=== PATIENT | female | born 1980 | race Caucasian/White ===

== ENCOUNTER 2018-05-12 10:22 | Emergency (ER) | payer BC ==
[2018-05-12] MEDS ORDERED: ALBUTEROL 2.5 MG/3 ML NEB SOL ONE (11:07)
[2018-05-12] MEDS ORDERED: IPRATROPIUM BROM 0.5MG/2.5ML ONE (11:07)
[2018-05-12] MEDS ORDERED: predniSONE 20 MG TAB ONE (11:08)
--- NOTE | 2018-05-12 11:24 | RAD REPORT ---
EXAM DESCRIPTION: RAD - Chest Pa And Lat (2 Views) - 05/12/2018 11:14 am CLINICAL HISTORY: COUGH Chest pain. COMPARISON: Chest Pa And Lat (2 Views) dated 07/18/2015 FINDINGS: The lungs are clear. The heart is normal in size. No displaced fractures. IMPRESSION: No acute or concerning finding suspected.
[2018-05-12 11:32] LABS: Urine Amorphous Sediment 3+ /HPF (NONE SEEN); Urine Bacteria <20 /HPF (<20); Urine Culture Reflex Order NOT NEEDED; Urine RBC <5 /HPF (NONE SEEN)
--- NOTE | 2018-05-12 11:54 | ER ---
Nurse's Notes [facility] Name: Kelly Cavanaugh Age: 37 yrs Sex: Female : 1980 Arrival Date: 05/12/2018 Time: 10:25 Bed 19 Private MD: Diagnosis: Mild intermittent asthma with (acute) exacerbation Presentation: 05/12 10:29 Presenting complaint: Chest tightness and SOB unrelieved by albuterol inhaler x 2 days. hb Transition of care: patient was not received from another setting of care. Onset of symptoms was May 12, 2018. Risk Assessment: Do you want to hurt yourself or someone else? Patient reports no desire to harm self or others. Initial Sepsis Screen: Does the patient meet any 2 criteria? No. Patient's initial sepsis screen is negative. Does the patient have a suspected source of infection? No. Patient's initial sepsis screen is negative. Care prior to arrival: None. 10:29 Method Of Arrival: Ambulatory hb 10:29 Acuity: KYLER 3 hb Historical: - Allergies: 10:32 No Known Allergies; hb - Home Meds: 10:32 Albuterol Inhl [Active]; Klonopin Oral [Active]; hb - PMHx: 10:32 Asthma; hb - PSHx: 10:32 None; hb - Immunization history:: Adult Immunizations up to date. - Social history:: Smoking status: Patient/guardian denies using tobacco. - Ebola Screening: : No symptoms or risks identified at this time. Screenin:14 Abuse screen: Denies threats or abuse. Denies injuries from another. Nutritional ph screening: No deficits noted. Tuberculosis screening: No symptoms or risk factors identified. Fall Risk None identified. Assessment: 11:12 General: Appears in no apparent distress. uncomfortable, obese, well groomed, Behavior ph is calm, cooperative, appropriate for age, Denies fever. Pain: Complains of pain in chest Quality of pain is described as "tight and sore". Neuro: Level of Consciousness is awake, alert, obeys commands, Oriented to person, place, time, situation. Cardiovascular: Reports chest pain, fatigue, shortness of breath, Denies nausea, palpitations, syncope, vomiting, Capillary refill < 3 seconds in bilateral fingers Patient's skin is warm and dry. Respiratory: Reports shortness of breath at rest cough that is productive, pain with cough pain with respiration Airway is patent Respiratory effort is even, unlabored, Respiratory pattern is regular, symmetrical, Breath sounds are coarse in mediastinum Breath sounds with wheezes. GI: No signs and/or symptoms were reported involving the gastrointestinal system. Derm: Skin is intact, is healthy with good turgor, Skin is pink, warm \\T\\ dry. 12:03 Reassessment: Patient appears in no apparent distress at this time. Patient and/or ph family updated on plan of care and expected duration. Pain level reassessed. Patient is alert, oriented x 3, equal unlabored respirations, skin warm/dry/pink. Patient states feeling better. Patient states symptoms have improved. Vital Signs: 10:31 BP 124 / 105; Pulse 80; Resp 18; Temp 97.4; Pulse Ox 98% on R/A; Pain 2/10; hb 11:19 BP 137 / 89; Pulse 76; Resp 18; Pulse Ox 98% on R/A; ph 12:03 BP 124 / 78; Pulse 87; Resp 18; Temp 98.1; Pulse Ox 99% on R/A; ph ED Course: 10:25 Patient arrived in ED. mr 10:30 Triage completed. hb 10:30 Arm band placed on. hb 10:32 Jimbo Padilla MD is Attending Physician. gs 10:43 Mary Diaz, PAVITHRA is Primary Nurse. ph 11:10 Patient moved to radiology via wheelchair. jb2 11:13 X-ray completed. Patient tolerated procedure well. jb2 11:13 Urine collected: clean catch specimen, cloudy. mh5 11:13 Urine Microscopic Only Sent. mh5 11:14 Patient has correct armband on for positive identification. Bed in low position. Call ph light in reach. Side rails up X 1. Pulse ox on. NIBP on. Warm blanket given. 11:15 XRAY Chest Pa And Lat (2 Views) In Process Unspecified. EDMS 11:15 Urine --Ancillary (enter results) Sent. mh5 11:15 Urine Dipstick--Ancillary (enter results) Sent. 5 11:15 No provider procedures requiring assistance completed. ph 11:16 Patient moved back from radiology. jb2 12:04 Patient did not have IV access during this emergency room visit. ph Administered Medications: 11:08 Drug: predniSONE 40 mg Route: PO; ph 12:05 Follow up: Response: No adverse reaction; Marked relief of symptoms ph 11:09 Drug: Albuterol 2.5 mg Route: Inhalation; ph 12:05 Follow up: Response: No adverse reaction; Marked relief of symptoms ph 11:09 Drug: AtroVENT Aerosol 0.5 mg Route: Inhalation; ph 12:06 Follow up: Response: No adverse reaction; Marked relief of symptoms ph Outcome: 11:53 Discharge ordered by . rocío 12:04 Discharged to home ambulatory. ph 12:04 Condition: improved 12:04 Discharge instructions given to patient, Instructed on discharge instructions, follow up and referral plans. medication usage, Demonstrated understanding of instructions, follow-up care, medications, Prescriptions given X 3. 12:06 Patient left the ED. ph Signatures: Dispatcher [employer] Shannan Carcamo KayeJohnathon2 Mary Diaz RN RN ph Baxter, Heather, RN RN Belle Srinivasan [facility] Jimbo Padilla MD MD
--- NOTE | 2018-05-12 11:54 | EDPHYS ---
Physician Documentation [facility] Name: Kelly Cavanaugh Age: 37 yrs Sex: Female : 1980 Arrival Date: 05/12/2018 Time: 10:25 Bed 19 Private MD: ED Physician Jimbo Padilla HPI: 05/12 11:50 This 37 yrs old Female presents to ER via Ambulatory with complaints of gs Asthma Exacerbation. 11:50 The patient presents to the emergency department with wheezing, Current therapy: gs albuterol inhaler. Onset: The symptoms/episode began/occurred 2 week(s) ago, and became persistent. Modifying factors: The symptoms are alleviated by nothing, the symptoms are aggravated by nothing. Associated signs and symptoms: Pertinent negatives: fever, palpitations. Severity of symptoms: At their worst the symptoms were moderate in the emergency department the symptoms are unchanged. The patient has experienced similar episodes in the past, several times. The patient has not recently seen a physician. Historical: - Allergies: 10:32 No Known Allergies; hb - Home Meds: 10:32 Albuterol Inhl [Active]; Klonopin Oral [Active]; hb - PMHx: 10:32 Asthma; hb - PSHx: 10:32 None; hb - Immunization history:: Adult Immunizations up to date. - Social history:: Smoking status: Patient/guardian denies using tobacco. - Ebola Screening: : No symptoms or risks identified at this time. ROS: 11:50 All other systems are negative. gs Exam: 11:50 Head/Face: Normocephalic, atraumatic. Eyes: Pupils equal round and reactive to light, gs extra-ocular motions intact. Lids and lashes normal. Conjunctiva and sclera are non-icteric and not injected. Cornea within normal limits. Periorbital areas with no swelling, redness, or edema. ENT: Nares patent. No nasal discharge, no septal abnormalities noted. Tympanic membranes are normal and external auditory canals are clear. Oropharynx with no redness, swelling, or masses, exudates, or evidence of obstruction, uvula midline. Mucous membranes moist. Neck: Trachea midline, no thyromegaly or masses palpated, and no cervical lymphadenopathy. Supple, full range of motion without nuchal rigidity, or vertebral point tenderness. No Meningismus. Chest/axilla: Normal chest wall appearance and motion. Nontender with no deformity. No lesions are appreciated. Cardiovascular: Regular rate and rhythm with a normal S1 and S2. No gallops, murmurs, or rubs. Normal PMI, no JVD. No pulse deficits. Abdomen/GI: Soft, non-tender, with normal bowel sounds. No distension or tympany. No guarding or rebound. No evidence of tenderness throughout. Back: No spinal tenderness. No costovertebral tenderness. Full range of motion. Skin: Warm, dry with normal turgor. Normal color with no rashes, no lesions, and no evidence of cellulitis. MS/ Extremity: Pulses equal, no cyanosis. Neurovascular intact. Full, normal range of motion. Neuro: Awake and alert, GCS 15, oriented to person, place, time, and situation. Cranial nerves II-XII grossly intact. Motor strength 5/5 in all extremities. Sensory grossly intact. Cerebellar exam normal. Normal gait. 11:50 Constitutional: The patient appears in no acute distress, alert, awake. 11:50 Respiratory: the patient does not display signs of respiratory distress, Respirations: normal, no use of accessory muscles, no retractions, no splinting, Breath sounds: wheezing: expiratory that is mild, is scattered. Vital Signs: 10:31 BP 124 / 105; Pulse 80; Resp 18; Temp 97.4; Pulse Ox 98% on R/A; Pain 2/10; hb 11:19 BP 137 / 89; Pulse 76; Resp 18; Pulse Ox 98% on R/A; ph 12:03 BP 124 / 78; Pulse 87; Resp 18; Temp 98.1; Pulse Ox 99% on R/A; ph MDM: 10:44 Patient medically screened. 11:50 Differential diagnosis: acute asthma, exercise-induced asthma, URI. Data reviewed: vital signs, nurses notes. Counseling: I had a detailed discussion with the patient and/or guardian regarding: the historical points, exam findings, and any diagnostic results supporting the discharge/admit diagnosis, radiology results, the need for outpatient follow up. Response to treatment: the patient's symptoms have markedly improved after treatment, and as a result, I will discharge patient. 05/12 10:47 Order name: Urine Microscopic Only; Complete Time: 11:45 05/12 11:14 Order name: Urine Dipstick--Ancillary (enter results) 05/12 10:47 Order name: XRAY Chest Pa And Lat (2 Views); Complete Time: 11:45 05/12 11:14 Order name: Urine --Ancillary (enter results) 05/12 10:47 Order name: Urine Test (obtain specimen); Complete Time: 11:12 05/12 10:47 Order name: Urine Dipstick-Ancillary (obtain specimen); Complete Time: 11:12 Administered Medications: 11:08 Drug: predniSONE 40 mg Route: PO; ph 12:05 Follow up: Response: No adverse reaction; Marked relief of symptoms ph 11:09 Drug: Albuterol 2.5 mg Route: Inhalation; ph 12:05 Follow up: Response: No adverse reaction; Marked relief of symptoms ph 11:09 Drug: AtroVENT Aerosol 0.5 mg Route: Inhalation; ph 12:06 Follow up: Response: No adverse reaction; Marked relief of symptoms ph Disposition: 05/12/18 11:53 Discharged to Home. Impression: Mild intermittent asthma with (acute) exacerbation. - Condition is Stable. - Discharge Instructions: Asthma, Acute Bronchospasm. - Prescriptions for Prednisone 20 mg Oral Tablet - take 1 tablet by ORAL route once daily for 5 days; 5 tablet. Albuterol Sulfate 2.5 mg /3 mL (0.083 %) Inhalation Solution for Nebulization - inhale 1 unit by NEBULIZATION route every 4-6 hours As needed use either nebulizer or mdi; 1 box. - Medication Reconciliation Form, Thank You Letter, Antibiotic Education, Prescription Opioid Use form. - Follow up: Private Physician; When: 2 - 3 days; Reason: Re-evaluation by your physician. Signatures: Dispatcher [employer] Mary Rivera RN RN ph Claudia Yu RN RN Jimbo Padilla MD MD gs Corrections: (The following items were deleted from the chart) 12:06 11:53 05/12/2018 11:53 Discharged to Home. Impression: Mild intermittent asthma with ph (acute) exacerbation. Condition is Stable. Forms are Medication Reconciliation Form, Thank You Letter, Antibiotic Education, Prescription Opioid Use. Follow up: Private Physician; When: 2 - 3 days; Reason: Re-evaluation by your physician.
[2018-05-12 14:13] LABS: Urine Blood NEGATIVE (NEG); Urine Glucose NEGATIVE (NEG); Urine Protein TRACE (NEG); Urine pH 7.5 (5.0-7.0)
== END 2018-05-12 12:06 | disposition home or self-care (01) ==
LOC: ER 10:22
DX: J45.21 Mild intermittent asthma with (acute) exacerbation (principal)
CPT/HCPCS: 71046; 81003; 81015; 81025; 99284; J7512

== ENCOUNTER 2019-02-26 15:12 | Emergency (ER) | payer BC ==
[2019-02-26 18:00] LABS: Absolute Lymphocytes (CBC) 1.3 K/uL (0.7-4.9); Basophils % 1.1 % (0-1.3); Hematocrit 41.8 % (36.0-45.0); Lymphocytes % 19.6 % (15.3-44.8); MPV 8.1 fL (7.6-11.3); RBC Red Blood Cell Count 4.72 M/uL (3.86-4.86)
[2019-02-26 19:05] LABS: Albumin 3.9 g/dL (3.4-5.0); Bilirubin Direct 2.3 mg/dL (0-0.2); Bilirubin Total 3.1 mg/dL (0.2-1.0); Potassium 3.3 mmol/L (3.5-5.1); Protein, Total 7.5 g/dL (6.4-8.2)
[2019-02-26 19:15] LABS: Urine Bacteria >50 /HPF (<20); Urine RBC <5 /HPF (NONE SEEN)
[2019-02-26 19:16] LABS: Urine Culture Reflex Order REFLEXED
--- NOTE | 2019-02-26 19:21 | RAD REPORT ---
EXAM DESCRIPTION: US - Abdomen Exam Limited - 02/26/2019 6:22 pm CLINICAL HISTORY: ABD PAIN COMPARISON: No comparisons FINDINGS: Multiple small mobile gallstones are present including several gallstones that are cluster ed near the neck. Gallbladder wall thickness is upper normal. Pericholecystic fluid is present. No common duct stone or biliary tree dilatation identified. IMPRESSION: Multiple small gallstones are present with minimal pericholecystic fluid and gallbladder wall thickness that is upper normal. These findings can be seen in acute cholecystitis and correlation is needed with clinical presentatio n. No biliary tree abnormality.
[2019-02-26 20:07] LABS: Urine Blood 1+ (NEG); Urine Glucose TRACE (NEG); Urine Protein NEGATIVE (NEG); Urine pH 5.5 (5.0-7.0)
--- NOTE | 2019-02-26 20:26 | ER ---
Nurse's Notes [facility] Name: Kelly Cavanaugh Age: 38 yrs Sex: Female : 1980 Arrival Date: 02/26/2019 Time: 15:14 Bed 14 Private MD: Diagnosis: Abnormal results of liver function studies;Cholecystitis;Cholelithiasis Presentation: 02/26 15:28 Presenting complaint: Patient states: epigastric pain that began last night. Pt reports aa5 vomited once last night, denies vomiting today. Denies diarrhea. Pt reports dark colored urine. Transition of care: patient was not received from another setting of care. Onset of symptoms was January 2019. Risk Assessment: Do you want to hurt yourself or someone else? Patient reports no desire to harm self or others. Initial Sepsis Screen: Does the patient meet any 2 criteria? No. Patient's initial sepsis screen is negative. Does the patient have a suspected source of infection? No. Patient's initial sepsis screen is negative. Care prior to arrival: None. 15:28 Acuity: KYLER 3 aa5 15:28 Method Of Arrival: Ambulatory aa5 Triage Assessment: 17:25 General: Appears in no apparent distress. comfortable, Behavior is cooperative, bp appropriate for age, anxious. Pain: Complains of pain in epigastric area. EENT: No deficits noted. Neuro: No deficits noted. Cardiovascular: No deficits noted. Respiratory: No deficits noted. GI: Reports epigastric pain. : No signs and/or symptoms were reported regarding the genitourinary system. Derm: No deficits noted. Musculoskeletal: No deficits noted. 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 - Social history:: Smoking status: Patient/guardian denies using tobacco. - Ebola Screening: : No symptoms or risks identified at this time. Screenin:26 Abuse screen: Denies threats or abuse. Denies injuries from another. Nutritional bp screening: No deficits noted. Tuberculosis screening: No symptoms or risk factors identified. Fall Risk None identified. Assessment: 17:26 General: SEE TRIAGE NOTE. bp 19:05 Reassessment: Patient and/or family updated on plan of care and expected duration. Pain aj1 level reassessed. Patient states symptoms have improved. General: Appears in no apparent distress. comfortable, Behavior is calm, cooperative, appropriate for age. Neuro: Level of Consciousness is awake, alert, obeys commands, Oriented to person, place, time, situation. Cardiovascular: Patient's skin is warm and dry. Respiratory: Airway is patent Respiratory effort is even, unlabored, Respiratory pattern is regular, symmetrical. GI: Abdomen is flat, non-distended, Bowel sounds present X 4 quads. Abd is soft X 4 quads Abdomen is tender to palpation in epigastric area. : Reports dark urine. EENT: No signs and/or symptoms were reported regarding the EENT system. Derm: No signs and/or symptoms reported regarding the dermatologic system. Skin is pink, warm \T\ dry. normal. Musculoskeletal: No signs and/or symptoms reported regarding the musculoskeletal system. Circulation, motion, and sensation intact. 20:20 Reassessment: Patient appears in no apparent distress at this time. No changes from aj1 previously documented assessment. Patient and/or family updated on plan of care and expected duration. Pain level reassessed. Patient is alert, oriented x 3, equal unlabored respirations, skin warm/dry/pink. 21:12 Reassessment: Patient appears in no apparent distress at this time. No changes from aj1 previously documented assessment. Patient and/or family updated on plan of care and expected duration. Pain level reassessed. Patient is alert, oriented x 3, equal unlabored respirations, skin warm/dry/pink. 22:15 Reassessment: Patient appears in no apparent distress at this time. No changes from aj1 previously documented assessment. Patient and/or family updated on plan of care and expected duration. Pain level reassessed. Patient is alert, oriented x 3, equal unlabored respirations, skin warm/dry/pink. Vital Signs: 15:30 BP 119 / 79; Pulse 74; Resp 16 S; Temp 98.0(TE); Pulse Ox 99% on R/A; Weight 99.79 kg aa5 (R); Height 5 ft. 6 in. (167.64 cm) (R); Pain 7/10; 19:05 BP 139 / 89; Pulse 58; Resp 16; Pulse Ox 100% on R/A; aj1 20:20 BP 135 / 91; Pulse 67; Resp 18; Pulse Ox 100% on R/A; aj1 21:13 BP 122 / 77; Pulse 58; Resp 16; Pulse Ox 98% on R/A; aj1 22:15 BP 132 / 75; Pulse 62; Resp 18; Pulse Ox 97% on R/A; aj1 15:30 Body Mass Index 35.51 (99.79 kg, 167.64 cm) aa5 ED Course: 15:14 Patient arrived in ED. cl3 15:28 Arm band placed on. aa5 15:29 Triage completed. aa5 17:25 Carlitos Chatterjee, PAVITHRA is Primary Nurse. bp 17:25 Tess Venegas, MAIRA is PHCP. kb 17:25 Nasir Herbert MD is Attending Physician. kb 17:26 Patient has correct armband on for positive identification. Bed in low position. Call bp light in reach. Side rails up X2. 17:54 Initial lab(s) drawn, by me, sent to lab. Urine collected: clean catch specimen, jb1 cloudy, brendan colored. Inserted saline lock: 22 gauge in right antecubital area, using aseptic technique. Blood collected. 19:05 No provider procedures requiring assistance completed. aj1 19:09 Notified Nurse Practitioner and/or Physician Anchorman of a critical lab result(s), AST bb 850, ALT 659. Tess Venegas STEAM SHOVELMAN notified. 21:17 Report given to PAVITHRA Cisneros at [facility]. aj1 22:42 Patient transferred, IV remains in place. aj1 Administered Medications: 20:33 Drug: Zosyn 3.375 grams Route: IVPB; Infused Over: 60 mins; Site: right antecubital; aj1 20:34 Drug: NS 0.9% 1000 ml Route: IV; Rate: 1000 ml; Site: right antecubital; aj1 Outcome: 20:25 ER care complete, transfer ordered by . kb 22:42 Transferred by ground EMS to [facility], Transfer form completed. aj1 22:42 Condition: stable 22:42 Discharge instructions given to patient, Instructed on the need for transfer, Demonstrated understanding of instructions. 22:43 Patient left the ED. aj1 Signatures: Segun Rahman jb1 Tess Venegas, CASH CROP FARMER-C CASH CROP FARMER-Tiffany Hatch RN RN aj1 Inez Mojica, RN RN bb Carolyn Ryan, RN RN aa5 Carlitos Chatterjee RN RN bp Dee Dee Davis cl3
--- NOTE | 2019-02-26 20:27 | EDPHYS ---
Physician Documentation [facility] Name: Kelly Cavanaugh Age: 38 yrs Sex: Female : 1980 Arrival Date: 02/26/2019 Time: 15:14 Bed 14 Private MD: ED Physician Nasir Herbert HPI: 02/26 17:56 This 38 yrs old Female presents to ER via Ambulatory with complaints of kb Epigastric Pain. 17:56 The patient presents with abdominal pain in the epigastric area. Onset: The kb symptoms/episode began/occurred last night. The symptoms radiate to back. Associated signs and symptoms: none. The symptoms are described as intermittent. Modifying factors: The symptoms are alleviated by nothing, the symptoms are aggravated by food. Severity of pain: At its worst the pain was moderate in the emergency department the pain has improved mildly. The patient has not experienced similar symptoms in the past. The patient has not recently seen a physician. Pt reports epigastric pain that started at 1900 last night and lasted until 0300. States the pain returned after eating this morning. . 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 - Social history:: Smoking status: Patient/guardian denies using tobacco. - Ebola Screening: : No symptoms or risks identified at this time. ROS: 17:54 Constitutional: Negative for fever, chills, and weight loss, ENT: Negative for injury, kb pain, and discharge, Neck: Negative for injury, pain, and swelling, Cardiovascular: Negative for chest pain, palpitations, and edema, Respiratory: Negative for shortness of breath, cough, wheezing, and pleuritic chest pain, Back: Negative for injury and pain, MS/Extremity: Negative for injury and deformity, Skin: Negative for injury, rash, and discoloration, Neuro: Negative for headache, weakness, numbness, tingling, and seizure. 17:54 Abdomen/GI: Positive for abdominal pain. 17:54 : Positive for dark urine. Exam: 17:54 Constitutional: This is a well developed, well nourished patient who is awake, alert, kb and in no acute distress. Head/Face: Normocephalic, atraumatic. Chest/axilla: Normal chest wall appearance and motion. Nontender with no deformity. No lesions are appreciated. Cardiovascular: Regular rate and rhythm with a normal S1 and S2. No gallops, murmurs, or rubs. Normal PMI, no JVD. No pulse deficits. Respiratory: Lungs have equal breath sounds bilaterally, clear to auscultation and percussion. No rales, rhonchi or wheezes noted. No increased work of breathing, no retractions or nasal flaring. Back: No spinal tenderness. No costovertebral tenderness. Full range of motion. Skin: Warm, dry with normal turgor. Normal color with no rashes, no lesions, and no evidence of cellulitis. MS/ Extremity: Pulses equal, no cyanosis. Neurovascular intact. Full, normal range of motion. Neuro: Awake and alert, GCS 15, oriented to person, place, time, and situation. Cranial nerves II-XII grossly intact. Motor strength 5/5 in all extremities. Sensory grossly intact. Cerebellar exam normal. Normal gait. 17:54 Abdomen/GI: Inspection: abdomen appears normal, Bowel sounds: normal, in all quadrants, Palpation: soft, in all quadrants, mild abdominal tenderness, in the epigastric area and left upper quadrant. Vital Signs: 15:30 BP 119 / 79; Pulse 74; Resp 16 S; Temp 98.0(TE); Pulse Ox 99% on R/A; Weight 99.79 kg aa5 (R); Height 5 ft. 6 in. (167.64 cm) (R); Pain 7/10; 19:05 BP 139 / 89; Pulse 58; Resp 16; Pulse Ox 100% on R/A; aj1 20:20 BP 135 / 91; Pulse 67; Resp 18; Pulse Ox 100% on R/A; aj1 21:13 BP 122 / 77; Pulse 58; Resp 16; Pulse Ox 98% on R/A; aj1 22:15 BP 132 / 75; Pulse 62; Resp 18; Pulse Ox 97% on R/A; aj1 15:30 Body Mass Index 35.51 (99.79 kg, 167.64 cm) aa5 MDM: 17:29 Patient medically screened. kb 17:29 Data reviewed: vital signs, nurses notes. Data interpreted: Pulse oximetry: on room air kb is 99 %. Interpretation: normal. 19:59 ED course: Transfer initiated to [facility], awaiting callback. kb 20:09 Counseling: I had a detailed discussion with the patient and/or guardian regarding: the kb historical points, exam findings, and any diagnostic results supporting the discharge/admit diagnosis, lab results, radiology results, the need to transfer to another facility. ED course: Pt accepted for consult by GI at [facility]. Awaiting callback from hospitalist. 20:24 ED course: Dr Pierre accepts pt for transfer to [facility]. kb 02/26 17:25 Order name: Basic Metabolic Panel 02/26 17:25 Order name: CBC with Diff 02/26 17:25 Order name: Hepatic Function 02/26 17:25 Order name: Lipase 02/26 17:52 Order name: Urine Microscopic Only 02/26 18:00 Order name: Urine Dipstick--Ancillary (enter results) 02/26 18:00 Order name: Urine --Ancillary (enter results) 02/26 18:28 Order name: CBC with Automated Diff; Complete Time: 18:29 [facility] 02/26 19:09 Order name: Basic Metabolic Panel; Complete Time: 19:12 [facility] 02/26 19:09 Order name: Liver (Hepatic) Function; Complete Time: 19:12 [facility] 02/26 19:09 Order name: Lipase; Complete Time: 19:12 [facility] 02/26 19:16 Order name: Urine Microscopic Only; Complete Time: 19:18 [facility] 02/26 20:08 Order name: Urine --Ancillary; Complete Time: 20:12 [facility] 02/26 20:08 Order name: Urine Dipstick-Ancillary; Complete Time: 20:12 [facility] 02/26 17:25 Order name: Urine Dipstick-Ancillary (obtain specimen); Complete Time: 17:55 kb 02/26 17:25 Order name: IV Saline Lock; Complete Time: 17:55 kb 02/26 17:25 Order name: Labs collected and sent; Complete Time: 17:55 kb 02/26 17:27 Order name: Urine Test (obtain specimen); Complete Time: 17:55 bp 02/26 17:51 Order name: US Abdomen Limited kb 02/26 19:23 Order name: US; Complete Time: 19:24 EDMS Administered Medications: 20:33 Drug: Zosyn 3.375 grams Route: IVPB; Infused Over: 60 mins; Site: right antecubital; aj1 20:34 Drug: NS 0.9% 1000 ml Route: IV; Rate: 1000 ml; Site: right antecubital; aj1 Disposition: 02/26/19 20:25 Transfer ordered to [facility]. Diagnosis are Abnormal results of liver function studies, Cholecystitis, Cholelithiasis. - Reason for transfer: Higher level of care. - Accepting physician is [facility]. - Condition is Stable. - Problem is new. - Symptoms are unchanged. Addendum: 03/01/2019 10:25 Co-signature as Attending Physician, Nasir Herbert MD. k Signatures: Dispatcher [employer] [facility] Tess Venegas, LUCIO-C TAI CHI INSTRUCTOR-Ckb Tiffany Dunn RN RN aj1 Nasir Herbert MD MD kdr Carolyn Ryan RN RN aa5 Carlitos Chatterjee RN RN bp Corrections: (The following items were deleted from the chart) 02/26 17: 17:29 Constitutional: Negative for fever, chills, and weight loss, kb kb 22:43 20:25 02/26/2019 20:25 Transfer ordered to [facility]. Diagnosis is aj1 Abnormal results of liver function studies; Cholecystitis; Cholelithiasis. Reason for transfer: Higher level of care. Accepting physician is [facility]. Condition is Stable. Problem is new. Symptoms are unchanged. kb
[2019-02-26] MEDS ORDERED: NA CHLORIDE 0.9% 1,000 ML ONE (20:29)
[2019-02-26] MEDS ORDERED: PIPER/TAZO/NS 3.375gm 3.375 GM/100 ML BAG ONE (20:29)
[2019-02-27 05:28] VITALS: TEMP 98
[2019-02-27 05:32] VITALS: BP 132/75; O2SAT 97
== END 2019-02-26 22:43 | disposition short-term general hospital (02) ==
LOC: ER 15:12
DX: K80.10 Calculus of gallbladder with chronic cholecystitis without obstruction (principal); J45.909 Unspecified asthma, uncomplicated
CPT/HCPCS: 87088; 85025; 87086; 80048; 36415; 81025; 80076; 87077; 87186; 83690; 76705; 96374; 99285; J2543; J7030; 81003; 81015

== ENCOUNTER 2019-03-16 16:12 | Emergency (ER) | payer BC ==
--- NOTE | 2019-03-16 17:15 | EDPHYS ---
Physician Documentation [facility] Name: Kelly Cavanaugh Age: 38 yrs Sex: Female : 1980 Arrival Date: 03/16/2019 Time: 16:15 Bed 13 Private MD: Pratik Hill V ED Physician Yannick Styles HPI: 03/16 21:24 This 38 yrs old Female presents to ER via Ambulatory with complaints of blue wa hands, Numbness. 21:24 The patient's problem is reported as "My hands are blue and feels numb". Onset: The wa symptoms/episode began/occurred today. Duration: The episode is continuous. Context: symptoms became apparent at work this morning. , Possible contributing factors include: unknown. . The symptoms are alleviated by nothing. The symptoms are aggravated by nothing. Associated signs and symptoms: Pertinent negatives: pain. . Severity of symptoms: At their worst the symptoms were moderate in the emergency department the symptoms are unchanged. Patient's baseline: Neuro: alert and fully oriented, Motor: no deficits, Ambulation: walks without assistance, Speech: normal. The patient has not experienced similar symptoms in the past. The patient has not recently seen a physician. denies pain. noted fingers on both hands with a bluish hue to it. denies h/o same int he past. denies SOB. denies recent unusual ingestion or medication. just had bilateral artificial acrylic nails done 3 days ago however. 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 - Social history:: Smoking status: Patient/guardian denies using tobacco. - Ebola Screening: : Patient negative for fever greater than or equal to 101.5 degrees Fahrenheit, and additional compatible Ebola Virus Disease symptoms Patient denies exposure to infectious person Patient denies travel to an Ebola-affected area in the 21 days before illness onset No symptoms or risks identified at this time. - Family history:: not pertinent. - Hospitalizations: : No recent hospitalization is reported. ROS: 21:28 Constitutional: Negative for fever, chills, and weight loss, Eyes: Negative for injury, wa pain, redness, and discharge, ENT: Negative for injury, pain, and discharge, Neck: Negative for injury, pain, and swelling, Cardiovascular: Negative for chest pain, palpitations, and edema, Respiratory: Negative for shortness of breath, cough, wheezing, and pleuritic chest pain, Abdomen/GI: Negative for abdominal pain, nausea, vomiting, diarrhea, and constipation, Back: Negative for injury and pain, : Negative for injury, bleeding, discharge, and swelling, Neuro: Negative for headache, weakness, numbness, tingling, and seizure, Psych: Negative for depression, anxiety, suicide ideation, homicidal ideation, and hallucinations. 21:28 All other systems are negative. 21:28 Skin: Positive for bluish hue discoloration to all fingers and hands. wa Exam: 21:29 CT study not indicated or reported. Reason for not performing CT: peripheral symptoms wa 21:29 Constitutional: This is a well developed, well nourished patient who is awake, alert, and in no acute distress. Head/Face: Normocephalic, atraumatic. Eyes: Pupils equal round and reactive to light, extra-ocular motions intact. Lids and lashes normal. Conjunctiva and sclera are non-icteric and not injected. Cornea within normal limits. Periorbital areas with no swelling, redness, or edema. ENT: Nares patent. No nasal discharge, no septal abnormalities noted. Tympanic membranes are normal and external auditory canals are clear. Oropharynx with no redness, swelling, or masses, exudates, or evidence of obstruction, uvula midline. Mucous membranes moist. Neck: Trachea midline, no thyromegaly or masses palpated, and no cervical lymphadenopathy. Supple, full range of motion without nuchal rigidity, or vertebral point tenderness. No Meningismus. Chest/axilla: Normal chest wall appearance and motion. Nontender with no deformity. No lesions are appreciated. Cardiovascular: Regular rate and rhythm with a normal S1 and S2. No gallops, murmurs, or rubs. Normal PMI, no JVD. No pulse deficits. Respiratory: Lungs have equal breath sounds bilaterally, clear to auscultation and percussion. No rales, rhonchi or wheezes noted. No increased work of breathing, no retractions or nasal flaring. Abdomen/GI: Soft, non-tender, with normal bowel sounds. No distension or tympany. No guarding or rebound. No evidence of tenderness throughout. Back: No spinal tenderness. No costovertebral tenderness. Full range of motion. Psych: Awake, alert, with orientation to person, place and time. Behavior, mood, and affect are within normal limits. 21:29 Musculoskeletal/extremity: Extremities: grossly normal except: noted in the both hands and fingers noted with bluish hue as if has applied bluish dye : 21:29 Skin: hands warm, although noted bluish hue to all fingers. long acrylic nails noted. no swelling or redness. nml cap refill. 21:29 Neuro: Orientation: is normal, Mentation: is normal, Memory: is normal, Cranial nerves: grossly normal, Cerebellar function: is grossly normal, Motor: is normal, Sensation: is normal. Vital Signs: 16:32 BP 114 / 81; Pulse 67; Resp 16; Temp 98.2; Pulse Ox 100% on R/A; Weight 95.25 kg; iw Height 5 ft. 6 in. (167.64 cm); Pain 0/10; 16:32 Body Mass Index 33.89 (95.25 kg, 167.64 cm) iw MDM: 16:22 Patient medically screened. nh 21:33 Data reviewed: vital signs, nurses notes. nh 21:33 ED course: unlikely Raynaud's. suspect reaction from acrylic gel chemicals. wa discoloration. otherwise warm. no symptoms. advised to go get artifical nails, glue, and acrylic covering removed immediately. of note, symptoms were limited to fingers and partially on hands. no signs of resp distress. no ingestions or recent procedures. unlikely methemoglobinemia. Administered Medications: No medications were administered Disposition: 03/16/19 17:14 Discharged to Home. Impression: Acute bilateral bluish hue to hands, nail wax/acrylic reaction. - Condition is Stable. - Medication Reconciliation Form, Thank You Letter, Antibiotic Education, Prescription Opioid Use form. - Follow up: Private Physician; When: 1 - 2 days; Reason: Recheck today's complaints. - Problem is new. - Symptoms are unchanged. - Notes: present immediately to get artificial nails, wax, and acrylic removed from your nailbeds. I do believe certain chemicals in them may be causing the discoloration to you hands. present here for pain, swelling, rapidly worsening discoloration or any other worrisome concerns. do not apply any chemicals to your hands otherwise Signatures: Ira Crenshaw RN RN iw Yannick Styles MD MD wa Vicente, Ronaldo, RN RN rv Corrections: (The following items were deleted from the chart) 17:20 17:14 03/16/2019 17:14 Discharged to Home. Impression: Acute bilateral bluish hue to rv hands; nail wax/acrylic reaction. Condition is Stable. Forms are Medication Reconciliation Form, Thank You Letter, Antibiotic Education, Prescription Opioid Use. Follow up: Private Physician; When: 1 - 2 days; Reason: Recheck today's complaints. Problem is new. Symptoms are unchanged. desirae
--- NOTE | 2019-03-16 17:15 | ER ---
Nurse's Notes [facility] Name: Kelly Cavanaugh Age: 38 yrs Sex: Female : 1980 Arrival Date: 03/16/2019 Time: 16:15 Bed 13 Private MD: Pratik Hill V Diagnosis: Acute bilateral bluish hue to hands;nail wax/acrylic reaction Presentation: 03/16 16:25 Presenting complaint: Patient states: noticed her hands were blue tinged this morning, iw she tried washing them, blue coloration continued throughout the day, comes and goes, fingertips go numb at times, went to urgent care and was sent here to r/o DVT, pt had recent cholecystectomy on Mar 02, denies pain, denies chest pain or SOB. Transition of care: patient was not received from another setting of care. Onset of symptoms was March 16, 2019. Risk Assessment: Do you want to hurt yourself or someone else? Patient reports no desire to harm self or others. Initial Sepsis Screen: Does the patient meet any 2 criteria? RR > 20 per min. Does the patient have a suspected source of infection? No. Patient's initial sepsis screen is negative. Care prior to arrival: None. 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 - Social history:: Smoking status: Patient/guardian denies using tobacco. - Ebola Screening: : Patient negative for fever greater than or equal to 101.5 degrees Fahrenheit, and additional compatible Ebola Virus Disease symptoms Patient denies exposure to infectious person Patient denies travel to an Ebola-affected area in the 21 days before illness onset No symptoms or risks identified at this time. - Family history:: not pertinent. - Hospitalizations: : No recent hospitalization is reported. Screenin:13 Abuse screen: Denies threats or abuse. Denies injuries from another. Nutritional iw screening: No deficits noted. Tuberculosis screening: No symptoms or risk factors identified. Fall Risk None identified. Assessment: 16:30 General: Appears in no apparent distress. comfortable, Behavior is calm, cooperative. iw Pain: Denies pain. Neuro: Level of Consciousness is awake, alert, obeys commands, Oriented to person, place, time, situation, Moves all extremities. Full function. Cardiovascular: Patient's skin is warm and dry. Cardiovascular: Denies chest pain, shortness of breath. Respiratory: Respiratory effort is even, unlabored, Respiratory pattern is regular, symmetrical. Derm: Skin is intact, is healthy with good turgor, Skin is amari hands appear to have blue discoloration, warm to touch, pt c/o mild numbness in fingertips, denies pain. Musculoskeletal: Range of motion: intact in all extremities. Vital Signs: 16:32 BP 114 / 81; Pulse 67; Resp 16; Temp 98.2; Pulse Ox 100% on R/A; Weight 95.25 kg; iw Height 5 ft. 6 in. (167.64 cm); Pain 0/10; 16:32 Body Mass Index 33.89 (95.25 kg, 167.64 cm) iw ED Course: 16:15 Patient arrived in ED. am2 16:15 Pratik Hill MD is Private Physician. am2 16:22 Yannick Styles MD is Attending Physician. wa 16:25 Ira Crenshaw RN is Primary Nurse. iw 16:29 Triage completed. iw 16:33 Arm band placed on. iw 17:13 Patient has correct armband on for positive identification. iw 17:13 No provider procedures requiring assistance completed. Patient did not have IV access iw during this emergency room visit. Administered Medications: No medications were administered Outcome: 17:14 Discharge ordered by . wa 17:20 Discharged to home ambulatory. rv 17:20 Condition: good 17:20 Discharge instructions given to patient, Instructed on discharge instructions, follow up and referral plans. Demonstrated understanding of instructions, follow-up care. 17:20 Patient left the ED. rv Signatures: Ira Crenshaw, RN RN Kelly Calderón am2 Yannick Styles MD MD wa Vicente, Ronaldo, RN RN rv
[2019-03-16 17:34] VITALS: BP 114/81; TEMP 98.2; O2SAT 100
== END 2019-03-16 17:20 | disposition home or self-care (01) ==
LOC: ER 16:12
DX: L60.8 Other nail disorders (principal)
CPT/HCPCS: 99281